=== PATIENT | female | born 1945 | race Caucasian/White ===

== ENCOUNTER 2024-05-23 08:33 | Outpatient (CLI) | payer MEDICARE ==
[2024-05-23] MEDS ORDERED: Iopamidol 370 76% 100 ML VIAL ONE (09:42)
== END 2024-05-23 08:34 | disposition home or self-care (01) ==
LOC: CSHCT 08:33
PROVIDERS: ATTEND Internal Medicine Hematology & Oncology
DX: C21.1 Malignant neoplasm of anal canal (principal); I70.0 Atherosclerosis of aorta; R91.8 Other nonspecific abnormal finding of lung field; Z98.890 Other specified postprocedural states
CPT/HCPCS: 71260; 74177

== ENCOUNTER 2025-08-01 12:48 | Outpatient (CLI) | payer MEDICARE | END 2025-08-01 12:49 | disposition home or self-care (01) | LOC: CSHCT 12:48 | PROVIDERS: ATTEND Internal Medicine Hematology & Oncology | DX: C21.1 Malignant neoplasm of anal canal (principal); M81.8 Other osteoporosis without current pathological fracture; D50.8 Other iron deficiency anemias; R30.0 Dysuria; M81.0 Age-related osteoporosis without current pathological fracture; E83.52 Hypercalcemia; D70.8 Other neutropenia; C78.7 Secondary malignant neoplasm of liver and intrahepatic bile duct | CPT/HCPCS: 71260; 74177 ==